=== PATIENT | male | born 1935 | race Caucasian/White ===

== ENCOUNTER 2020-09-28 10:25 | Inpatient (IN) | payer MEDICARE, BC ==
[~2020-09-28] VITALS: Ht 172.7 cm; Wt 75.3 kg
[2020-09-28] MEDS ORDERED: SERT50TA12 PO (10:41)
[2020-09-28] MEDS ORDERED: LOSA1TAB42 PO (10:41)
[2020-09-28] MEDS ORDERED: ATOR40TA PO (10:41)
[2020-09-28] MEDS ORDERED: EZET10TA32 PO (10:41)
[2020-09-28] MEDS ORDERED: ASPI-1169 PO (10:41)
[2020-09-28] MEDS ORDERED: APIX5TAB PO (10:41)
[2020-09-28] MEDS ORDERED: AMLO-213 PO (10:41)
[2020-09-28] MEDS ORDERED: RIVA1PAT11 TP (10:41)
[2020-09-28] MEDS ORDERED: LEVO75TA7 PO (10:41)
[2020-09-28] MEDS ORDERED: TRIA80CR12 TP (10:41)
--- NOTE | 2020-09-28 10:45 | NUR ---
Beth king in [facility] - 09/28/20 at 1142 by ANGÉLICA [id number] [facility] HOME C/O L HIP PAIN S/P GLF
--- NOTE | 2020-09-28 10:45 | NUR ---
[id number] [facility] HOME C/O L HIP PAIN S/P GLF
--- NOTE | 2020-09-28 10:45 | NUR ---
[id number] [facility] HOME C/O L HIP PAIN S/P GLF. ALERT ORIENTED X3. PAIN 2/10 PT ON ROOM AIR. DENIES SOB. RR REGULAR NON LABORED. WILL CONTINUE TO MONITOR.
[2020-09-28 10:55] LABS: BASOPHILS % (AUTO) 0.2 % (0.0-2.0); EOSINOPHILS % (AUTO) 0.9 % (0.0-6.0); HEMATOCRIT 37 % (39-51); LYMPHOCYTES % (AUTO) 13.5 % (20.0-44.0); MEAN CORPUSCULAR HGB CONC 33 g/dl (31.0-36.0); MEAN CORPUSCULAR VOLUME 92 fL (80-96); MONOCYTES # (AUTO) 0.6 K/uL (0.1-1.30); NEUTROPHILS # (AUTO) 11.9 K/uL (1.8-8.9); NEUTROPHILS % (AUTO) 81.4 % (43.0-81.0); PLATELET COUNT (AUTO) 232 K/uL (150-450); RED BLOOD CELL COUNT(AUTO) 3.95 MIL/uL (4.5-6.0); WHITE BLOOD COUNT (AUTO) 14.7 K/uL (4.3-11.0)
[2020-09-28 11:01] LABS: CALCIUM, SERUM 8.7 mg/dL (8.5-10.1); CARBON DIOXIDE 27 mmol/L (21-32); CHLORIDE 105 mmol/L (98-107); CREATININE 1.5 mg/dL (0.6-1.3); GLUCOSE 129 mg/dL (74-106); POTASSIUM 3.1 mmol/L (3.5-5.1); SODIUM SERUM 143 mmol/L (136-145); UREA NITROGEN, BLOOD 18 mg/dL (7-18)
--- NOTE | 2020-09-28 11:39 | NUR ---
COVID SWAB DONE AND SENT TO THE LAB
[2020-09-28] MEDS ORDERED: ONDANSETRON HCL/PF 4 MG/2 ML VIAL ONE (12:18)
--- NOTE | 2020-09-28 12:59 | NUR ---
NURSING SUP GAVE M/S BED 106.
--- NOTE | 2020-09-28 13:08 | NUR ---
REPORT GIVEN TO NURSE REBOLLEDO
[2020-09-28] MEDS ORDERED: ONDANSETRON HCL/PF 4 MG/2 ML VIAL IVP PRN (13:30)
[2020-09-28] MEDS ORDERED: MAG HYDROX/AL HYDROX/SIMETH 30 ML UDC PO PRN (13:30)
[2020-09-28] MEDS ORDERED: HYDROCODONE/APAP 5/325MG TABLET PO PRN (13:30)
[2020-09-28] MEDS ORDERED: Z GUARD REMEDY 2 OZ OINT TP PRN (13:30)
[2020-09-28] MEDS ORDERED: MAGNESIUM HYDROXIDE 30 ML UDC PO PRN (13:30)
[2020-09-28 13:45] VITALS: BP 129/57
--- NOTE | 2020-09-28 13:45 | NUR ---
THE PATIENT IS TRANSFERED TO ROOM 106 IN STABLE CONDITION AND PER ACLS POLICY.
--- NOTE | 2020-09-28 13:50 | NUR ---
RN NOTES RECEIVED PT FROM ER VIA [facility]. A/O X2-3. WITH PERIODS OF CONFUSION. STABLE ON ROOM AIR. SKIN IS INTACT. NO COMPLAINS OF PAIN. LAC #20 INTACT, PATENT AND FLUSHED. BELONGING LIST SIGNED. SAFETY MEASURES IN PLACE. ISOLATION PRECAUTIONS MAINTAINED. CALL LIGHT WITHIN REACH. BED LOCKED AND IN LOWEST POSITION WITH SIDE RAILS UP X3. WILL CONTINUE TO MONITOR.
[2020-09-28 16:00] VITALS: BP 125/61
--- NOTE | 2020-09-28 19:30 | NUR ---
RN NOTE RECEIVED PATIENT IN BED, CONFUSED, IN NO S/SX OF ACUTE DISTRESS AT THIS TIME. BREATHING EVEN AND UNLABORED, SATURATION AT 96% ON ROOM AIR, SR ON THE MONITOR, HR IS 69. NOTED IV SITE AT LAC 20G, PATENT AND FLUSHING WELL, NO S/S OF INFECTION OR INFILTRATION. PATIENT IS CONTINENT, WITH URINAL AT BEDSIDE. APPROPRIATE ISOLATION PRECAUTIONS MAINTAINED. SAFETY MEASURES IMPLEMENTED. PATIENT BED ALARM IS ON. HEAD OF BED ELEVATED. BED IS LOCKED, IN LOWEST POSITION AND SIDE RAILS UP. CALL LIGHT WITHIN REACH OF THE PATIENT. WILL CONTINUE TO MONITOR AND REASSESS FOR ANY CHANGES.
--- NOTE | 2020-09-28 19:37 | NUR ---
RN CLOSING NOTES NO SIGNIFICANT CHANGES THROUGHOUT THE SHIFT. STABLE ON ROOM AIR. NO PAIN REPORTED AT THIS TIME. KEPT CLEAN AND COMFORTABLE. NEEDS ATTENDED. ISOLATION PRECAUTIONS MAINTAINED. SAFETY MEASURES IN PLACE. ENDORSED TO NIGHT RN FOR QUE.
[2020-09-28 20:00] VITALS: BP 151/61
[2020-09-29] VITALS: BP 139/74
[2020-09-29] MEDS: ACETAMINOPHEN 325 MG TABLET PO PRN (00:54)
[2020-09-29 04:00] VITALS: BP 133/62
[2020-09-29 06:20] LABS: BASOPHILS % (AUTO) 0.1 % (0.0-2.0); EOSINOPHILS % (AUTO) 0.2 % (0.0-6.0); HEMATOCRIT 33 % (39-51); HEMOGLOBIN 10.9 g/dL (13.5-17.5); LYMPHOCYTES # (AUTO) 1.1 K/uL (0.8-4.8); LYMPHOCYTES % (AUTO) 7.7 % (20.0-44.0); MEAN CORPUSCULAR HGB CONC 34 g/dl (31.0-36.0); MEAN CORPUSCULAR VOLUME 92 fL (80-96); MONOCYTES % (AUTO) 7.4 % (2.0-12.0); NEUTROPHILS # (AUTO) 11.9 K/uL (1.8-8.9); NEUTROPHILS % (AUTO) 84.6 % (43.0-81.0); PLATELET COUNT (AUTO) 173 K/uL (150-450); RED BLOOD CELL COUNT(AUTO) 3.53 MIL/uL (4.5-6.0); WHITE BLOOD COUNT (AUTO) 14.1 K/uL (4.3-11.0)
[2020-09-29] MEDS ORDERED: TRIAMCINOLONE ACETONIDE 0.1% CR 15 GM TUBE TP PRN (07:00)
[2020-09-29 07:02] LABS: CHOLESTEROL 108 mg/dL (<200); HDL CHOLESTEROL 34 mg/dL (40-60); LDL 59 mg/dL (0-99); TRIGLYCERIDES 64 mg/dL (30-150)
[2020-09-29 07:09] LABS: ALANINE AMINOTRANSFERASE 32 U/L (12-78); ALKALINE PHOSPHATASE 34 U/L (46-116); ASPARTATE AMINOTRANSFERASE 51 U/L (15-37); BILIRUBIN,TOTAL 1.6 mg/dL (0.2-1.0); CALCIUM, SERUM 8.9 mg/dL (8.5-10.1); CARBON DIOXIDE 30 mmol/L (21-32); CHLORIDE 105 mmol/L (98-107); CREATININE 1.7 mg/dL (0.6-1.3); GLUCOSE 136 mg/dL (74-106); MAGNESIUM 1.8 mg/dL (1.8-2.4); PHOSPHORUS 3.3 mg/dL (2.5-4.9); POTASSIUM 3.4 mmol/L (3.5-5.1); SODIUM SERUM 143 mmol/L (136-145); TOTAL PROTEIN, SERUM 6.1 g/dL (6.4-8.2); UREA NITROGEN, BLOOD 38 mg/dL (7-18)
--- NOTE | 2020-09-29 07:21 | NUR ---
RN NOTE PATIENT OBSERVED IN BED ASLEEP AT THIS TIME, BREATHING EVEN AND UNLABORED,ON TELE MONITOR WITH CONTROLLED A-FIB AND OCCASIONAL PVC, PATIENT ON ROOM AIR O2 SAT OF 98%, NO COMPLAINS OF CHEST PAIN, BLE WEAKNESS, SAFETY MEASURES OBSERVED, CALL LIGHT WITHIN REACH, BED WHEELS LOCK, WILL CONTINUE TO MONITOR
--- NOTE | 2020-09-29 07:34 | NUR ---
RN NOTE PATIENT SEEN BY RONNIE ZULETA. PATIENT IS ON CONTROLLED A-FIB, NOTIFIED MD THAT PATIENT IS TAKING ELIQUIS AT HOME, BUT IS NOT CURRENTLY ON DUE TO HEMATOMA NOTED WITH THE PATIEN PER DR OLIVIA ORDERED TO FOLLOW UP IN TWO DAYS REGARDING ELIQUIS OR ANTICOAGULANT USE. WILL CONTINUE TO MONITOR PATIENT FOR S/S OF BLEEDING.
--- NOTE | 2020-09-29 07:34 | NUR ---
RN NOTE PATIENT ALERT AND ORIENTED X4 NOTED WITH CONTROLLED AFIB WITH OCCASIONAL PVC HR OF 72 NO COMPLAINS OF CHEST PAIN, NO NEW ORDERS AT THIS TIME.
[2020-09-29 08:00] VITALS: BP 132/62
[2020-09-29] MEDS: ATORVASTATIN 40 MG TABLET PO SCH (08:27)
[2020-09-29] MEDS: LEVOTHYROXINE SODIUM 75 MCG TABLET PO SCH (08:27)
[2020-09-29] MEDS: LOSARTAN POTASSIUM 50 MG TABLET PO SCH (08:27)
[2020-09-29] MEDS: SERTRALINE HCL 50 MG TABLET PO SCH (08:27)
[2020-09-29] MEDS: ASPIRIN 81 MG TAB.CHEW PO SCH (08:28)
[2020-09-29] MEDS: AMLODIPINE BESYLATE 10 MG TABLET PO SCH (08:28)
[2020-09-29] MEDS: EZETIMIBE 10 MG TABLET PO SCH (08:28)
[2020-09-29] MEDS ORDERED: POTASSIUM CHLORIDE 20 MEQ TAB.PRT.SR PO ONE (09:00)
[2020-09-29] MEDS ORDERED: HYDROCHLOROTHIAZIDE 25 MG TABLET PO SCH (09:00)
[2020-09-29] MEDS ORDERED: LOSARTAN/HCTZ 50-12.5MG/ 1 EA TABLET PO SCH (09:00)
[2020-09-29] MEDS: RIVASTIGMINE TARTRATE 4.6 MG PATCH.TD24 TD SCH (09:38)
--- NOTE | 2020-09-29 10:01 | NUR ---
RN NOTE DR. GONG UPDATED RESPONSIBLE REPUBLICAN REGARDING PATIENT CURRENT CONDITION AND PLAN.
--- NOTE | 2020-09-29 10:45 | NUR ---
RN NOTE PT/OT EVALUATION ORDERED BY [facility] PT/OT FOR PATIENT TO BE SEEN, OT SCHEDULED FOR TOMORROW, PT WILL SEE PATIENT TODAY.
[2020-09-29 12:00] VITALS: BP 131/54
[2020-09-29 16:00] VITALS: BP 122/58
[2020-09-29] MEDS: IV LR 1000 ML 1,000 ML IV PRN (18:42)
--- NOTE | 2020-09-29 18:50 | NUR ---
RN NOTE PATIENT OBSERVED IN BED ASLEEP AT THIS TIME, BREATHING EVEN AND UNLABORED,ON TELE MONITOR WITH CONTROLLED A-FIB AND OCCASIONAL PVC HR OF 76 AT THIS TIME, PATIENT ON ROOM AIR O2 SAT OF 98%, NO COMPLAINS OF CHEST PAIN, BLE WEAKNESS, NO BLEEDING NOTED, IV ON LEFT AC G20 MD STARTED LR 50CC/HR INFUSING WELL, FOR URINALYSIS, CREATINE URINE AND URINE SODIUM ORDERED, UNABLE TO COLLECT URINE AT THIS TIME MD ORDERED AT 1806,SAFETY MEASURES OBSERVED, CALL LIGHT WITHIN REACH, BED WHEELS LOCK, WILL CONTINUE TO MONITOR, WILL ENDORSE TO NOC SHIFT
--- NOTE | 2020-09-29 19:30 | NUR ---
RN NOTE RECEIVED PATIENT IN BED. A/OX1-2, PATIENT IS CONFUSED. TOLERATING ROOM AIR. RESPIRATIONS ARE EVEN AND UNLABORED. NO S/S SOB NOTED. NO C/O PAIN AT THIS TIME. IN NO APPARENT DISTRESS. EXTERNAL TELE MONITOR READ CONTROLLED AFIB HR 70-80 WITH OCCASIONAL PVCS. IV ACCESS IN LAC#20 RUNNING LR@50ML/HR. BED IS LOW AND LOCKED, HOB ELEVATED IN SEMI FOWLERS, SIDE RAILS UP X2, CALL LIGHT WITHIN REACH. WILL CONTINUE TO MONITOR THROUGHOUT SHIFT.
[2020-09-29 20:00] VITALS: BP 128/59
[2020-09-29 21:50] LABS: COLOR,URINE YELLOW (YELLOW)
[2020-09-29 21:51] LABS: PH,URINE 7.5 (5.0-8.0)
[2020-09-29 21:52] LABS: BILIRUBIN,URINE NEGATIVE (NEGATIVE); CREATININE, URINE 162.9 MG/DL (30.0-125.0); UGLUCOSE NEGATIVE (NEGATIVE); UROBILINOGEN,URINE 0.2 EU/dL (0.2)
[2020-09-29 22:10] LABS: PROTEIN,URINE NEGATIVE (NEGATIVE)
[2020-09-29 22:11] LABS: NITRITE, URINE NEGATIVE (NEGATIVE)
[2020-09-29 22:12] LABS: LEUKOCYTE ESTERASE ,URINE NEGATIVE (NEGATIVE)
[2020-09-29 22:13] LABS: BACTERIA,URINE RARE /HPF (None Seen); SQUAMOUS EPITHELIAL CELL,UR 0-2 /HPF (None Seen); WBC,URINE 0-2 /HPF (0-3)
[2020-09-29 22:14] LABS: URINE AMORPHOUS PHOSPHATES Many /HPF (None Seen)
[2020-09-30] VITALS: BP 121/52
[2020-09-30 04:00] VITALS: BP 134/65
--- NOTE | 2020-09-30 06:55 | NUR ---
RN NOTE PATIENT RESTING IN BED. A/OX1. REMAINS TOLERATING ROOM AIR. NO RESP DISTRESS. NO C/O PAIN. NO DISTRESS. TELE MONITOR CONTROLLED AFIB WITH PVCS. IV IN LAC#20 RUNNING LR@50ML/HR. BED REMAINS LOW AND LOCKED, HOB ELEVATED IN SEMI FOWLERS, SIDE RAILS UP X2, WILL ENDORSE TO ONCOMING SHIFT.
--- NOTE | 2020-09-30 07:15 | NUR ---
RN NOTE PATIENT OBSERVED IN BED ASLEEP AT THIS TIME, BREATHING EVEN AND UNLABORED,ON TELE MONITOR WITH CONTROLLED A-FIB AND OCCASIONAL PVC, PATIENT ON ROOM AIR O2 SAT OF 98%, NO COMPLAINS OF CHEST PAIN, BLE WEAKNESS, FOR PT/OT SERVICES TODAY, WILL FOLLOW UP ORDERED, SAFETY MEASURES OBSERVED, CALL LIGHT WITHIN REACH, BED WHEELS LOCK, WILL CONTINUE TO MONITOR
[2020-09-30 08:00] VITALS: BP 111/63
[2020-09-30] MEDS: ASPIRIN 81 MG TAB.CHEW PO SCH (09:00)
[2020-09-30] MEDS: ATORVASTATIN 40 MG TABLET PO SCH (09:07)
[2020-09-30] MEDS: LOSARTAN POTASSIUM 50 MG TABLET PO SCH (09:08)
[2020-09-30] MEDS: AMLODIPINE BESYLATE 10 MG TABLET PO SCH (09:09)
[2020-09-30] MEDS: LEVOTHYROXINE SODIUM 75 MCG TABLET PO SCH (09:09)
[2020-09-30] MEDS: SERTRALINE HCL 50 MG TABLET PO SCH (09:09)
[2020-09-30] MEDS: EZETIMIBE 10 MG TABLET PO SCH (09:09)
[2020-09-30] MEDS: RIVASTIGMINE TARTRATE 4.6 MG PATCH.TD24 TD SCH (09:12)
[2020-09-30] MEDS: POTASSIUM CHLORIDE 20 MEQ TAB.PRT.SR PO SCH ×3 (10:05→13:07)
[2020-09-30 12:00] VITALS: BP 109/59
[2020-09-30] MEDS: IV LR 1000 ML 1,000 ML IV PRN (15:21)
[2020-09-30 16:00] VITALS: BP 114/60
--- NOTE | 2020-09-30 18:52 | NUR ---
RN NOTE PATIENT OBSERVED IN BED AWAKE WITH EPISODE OF CONFUSION AT THIS TIME, BREATHING EVEN AND UNLABORED,ON TELE MONITOR WITH CONTROLLED A-FIB AND OCCASIONAL PVC, PATIENT ON ROOM AIR O2 SAT OF 98%, NO COMPLAINS OF CHEST PAIN, BLE WEAKNESS, PATIENT WITH RIGHT UPPER ARM IV, PATENT AND INFUSING WELL, SEEN BY PT AND OT TODAY, WILL FOLLOW UP ORDERED, SAFETY MEASURES OBSERVED, CALL LIGHT WITHIN REACH, BED WHEELS LOCK, WILL CONTINUE TO MONITOR, WILL ENDORSE TO NOC SHIFT
[2020-09-30 20:00] VITALS: BP 98/54
[2020-09-30] MEDS: ACETAMINOPHEN 325 MG TABLET PO PRN (21:08)
--- NOTE | 2020-09-30 22:10 | NUR ---
COMMUNICATIONS PROFESSOR: REASSESSED AFTER GIVEN TYLENOL WT GOOD EFFECT. NO C/O BODY PAIN AT THIS TIME. EYES CLOSED, ABLE TO OPEN EYES WHEN TOUCHED OR CALLED BY NAME. WILL CONTINUE TO MONITOR.
[2020-10-01] VITALS: BP 109/54
[2020-10-01 04:00] VITALS: BP 116/56
--- NOTE | 2020-10-01 06:15 | NUR ---
ALARM MECHANIC: NO SIGNIFICANT QUE DURING THE SHIFT. ALERT AND AWAKE WT CONFUSION AND FORGETFULNESS. WT EPISODES OF TRYING TO GET OUT BED THINKING PT WAS AT HOME AND CALLING THE . REORIENTED TO [facility] WT HELP. SR WT PACs ON TELE. CONTINUE ON LR AT 50ML/HR WT NO S/S OF IV INFILTRATION. HOB AT 35 DEGREES, BED IN LOWEST POSITION AND LOCKED, SIDE RAILS UP X3. BED ALARM ON. CALL LIGHT KEPT WITHIN REACH.
--- NOTE | 2020-10-01 07:30 | NUR ---
RN OPENING NOTE RECEIVED REPORT FROM PM NURSE.PATIENT IN BED ,AWAKE WITH CONFUSION AT THIS TIME, BREATHING EVEN AND UNLABORED,ON TELE MONITOR WITH CONTROLLED A-FIB AND OCCASIONAL PVC, PATIENT ON ROOM AIR NO COMPLAINS OF CHEST PAIN, BLE WEAKNESS.IV IS INTACT , PATENT AND INFUSING WELL.SAFETY MEASURES IN PLACE.CALL LIGHT WITHIN REACH,BED IS LOW AND IN LOCKED POSITION.SRX3.WILL CONTINUE TO MONITOR.
[2020-10-01 08:00] VITALS: BP 104/54
[2020-10-01] MEDS: ATORVASTATIN 40 MG TABLET PO SCH (08:11)
[2020-10-01] MEDS: ASPIRIN 81 MG TAB.CHEW PO SCH (08:12)
[2020-10-01] MEDS: EZETIMIBE 10 MG TABLET PO SCH (08:12)
[2020-10-01] MEDS: SERTRALINE HCL 50 MG TABLET PO SCH (08:12)
[2020-10-01] MEDS: AMLODIPINE BESYLATE 10 MG TABLET PO SCH (08:12)
[2020-10-01] MEDS: LOSARTAN POTASSIUM 50 MG TABLET PO SCH (08:13)
[2020-10-01] MEDS: RIVASTIGMINE TARTRATE 4.6 MG PATCH.TD24 TD SCH (08:13)
[2020-10-01] MEDS: LEVOTHYROXINE SODIUM 75 MCG TABLET PO SCH (08:13)
[2020-10-01 09:49] LABS: BASOPHILS % (AUTO) 0.1 % (0.0-2.0); EOSINOPHILS % (AUTO) 0.6 % (0.0-6.0); HEMATOCRIT 26 % (39-51); HEMOGLOBIN 8.9 g/dL (13.5-17.5); LYMPHOCYTES # (AUTO) 1.3 K/uL (0.8-4.8); LYMPHOCYTES % (AUTO) 10.4 % (20.0-44.0); MEAN CORPUSCULAR HGB CONC 34 g/dl (31.0-36.0); MEAN CORPUSCULAR VOLUME 92 fL (80-96); MONOCYTES # (AUTO) 0.8 K/uL (0.1-1.30); MONOCYTES % (AUTO) 6.4 % (2.0-12.0); NEUTROPHILS % (AUTO) 82.5 % (43.0-81.0); PLATELET COUNT (AUTO) 168 K/uL (150-450); RED BLOOD CELL COUNT(AUTO) 2.85 MIL/uL (4.5-6.0); WHITE BLOOD COUNT (AUTO) 12.2 K/uL (4.3-11.0)
[2020-10-01 10:18] LABS: CALCIUM, SERUM 8.5 mg/dL (8.5-10.1); CARBON DIOXIDE 27 mmol/L (21-32); CHLORIDE 107 mmol/L (98-107); CREATININE 1.4 mg/dL (0.6-1.3); GLUCOSE 115 mg/dL (74-106); POTASSIUM 3.2 mmol/L (3.5-5.1); SODIUM SERUM 141 mmol/L (136-145); UREA NITROGEN, BLOOD 49 mg/dL (7-18)
[2020-10-01 12:00] VITALS: BP 122/57
--- NOTE | 2020-10-01 12:13 | NUR ---
RN NOTE ABNORMAL LABS NOTIFIED TO ,GOT NEW ORDER FOR POTASSIUM [id number] PO.
[2020-10-01] MEDS ORDERED: POTASSIUM CHLORIDE 20 MEQ TAB.PRT.SR PO ONE (12:30)
[2020-10-01] MEDS: IV LR 1000 ML 1,000 ML IV PRN (12:45)
[2020-10-01 16:00] VITALS: BP 115/57
[2020-10-01] MEDS: ACETAMINOPHEN 325 MG TABLET PO PRN (16:42)
--- NOTE | 2020-10-01 17:20 | NUR ---
RN NOTE PATOENT GETTING UP FROM BED .NON COMPLIANT WITH INSTRUCTIONS.PULLING IV LINE AND IV PUMP. MADE AWARE.GOT AN ORDER FOR SITTER.CHARGE NURSE MADE AWARE.
--- NOTE | 2020-10-01 18:53 | NUR ---
RMN CLOSING NOTE PATIENT IN BED.TO HAVE SITTER.PATIENT IS GETTING UP FROM BED.RN SITTING NEST TO PATIENT TO ENSURE SAFETY.V/S STABLE.ALL NEEDS MET.SAFETY AND ASPIRATION MEASURES IN PLACE.WILL ENDORSE TO PM NURSE FOR QUE.
--- NOTE | 2020-10-01 19:47 | NUR ---
RN OPENING NOTE RECEIVED PATIENT IN BED , AWAKE WITH CONFUSION , A/O X1. BREATHING EVEN AND UNLABORED, NO SOB NOTED ON ROOM AIR. DENIES ANY PAIN. CRICKET FLORES AT BEDSIDE SITTER R/T PT. CONFUSED AND DISORIENTED .IV (L) WRIST INTACT , PATENT AND INFUSING LR @ 50ML/HR. SAFETY MEASURES IN PLACE. CALL LIGHT WITHIN REACH, BED LOCKED AND IN LOWEST POSITION. SRX3. VITAL SIGNS WNL. NO ACUTE DISTRESS NOTED AT THIS TIME.
[2020-10-01 20:00] VITALS: BP 119/80
[2020-10-02 04:00] VITALS: BP 121/71
--- NOTE | 2020-10-02 06:58 | NUR ---
RN CLOSING NOTE PATIENT IN BED , AWAKE WITH CONFUSION , A/O X1. BREATHING EVEN AND UNLABORED, NO SOB NOTED ON ROOM AIR. DENIES ANY PAIN. CRICKET FLORES AT BEDSIDE SITTER R/T PT. CONFUSED AND DISORIENTED .IV (L) WRIST INTACT , PATENT AND INFUSING LR @ 50ML/HR. ALL NEEDS ATTENDED THROUGHOUT SHIFT. KEPT CLEAN AND DRY. SAFETY MEASURES IN PLACE. CALL LIGHT WITHIN REACH, BED LOCKED AND IN LOWEST POSITION. SRX3. VITAL SIGNS WNL. NO ACUTE DISTRESS NOTED AT THIS TIME. WILL ENDORSE CONTINUITY OF CARE TO MORNING SHIFT RN
--- NOTE | 2020-10-02 07:32 | NUR ---
RN OPENING NOTE Patient is alert and oriented x 1-2 (Name/location) with periods of confusion as baseline and agitation. with CANDY CUTTER MACHINE at bedside for safety checks. No respiratory distress. Left wrist IV #22 patent, clean-intact, no s/sx of infiltration, infusing LR @50ml/hr. Safety measures in place, bed locked in lowest position with side rails up x 3 and call light within reach.
[2020-10-02 08:00] VITALS: BP 130/75
[2020-10-02 08:13] LABS: BASOPHILS % (AUTO) 0.2 % (0.0-2.0); EOSINOPHILS % (AUTO) 0.8 % (0.0-6.0); HEMATOCRIT 23 % (39-51); HEMOGLOBIN 7.9 g/dL (13.5-17.5); LYMPHOCYTES % (AUTO) 10.9 % (20.0-44.0); MEAN CORPUSCULAR HGB CONC 34 g/dl (31.0-36.0); MEAN CORPUSCULAR VOLUME 92 fL (80-96); MONOCYTES # (AUTO) 0.9 K/uL (0.1-1.30); MONOCYTES % (AUTO) 9.8 % (2.0-12.0); NEUTROPHILS # (AUTO) 7.3 K/uL (1.8-8.9); NEUTROPHILS % (AUTO) 78.3 % (43.0-81.0); PLATELET COUNT (AUTO) 179 K/uL (150-450); RED BLOOD CELL COUNT(AUTO) 2.53 MIL/uL (4.5-6.0); WHITE BLOOD COUNT (AUTO) 9.3 K/uL (4.3-11.0)
[2020-10-02] MEDS: LEVOTHYROXINE SODIUM 75 MCG TABLET PO SCH (08:32)
[2020-10-02] MEDS: ASPIRIN 81 MG TAB.CHEW PO SCH (08:32)
[2020-10-02] MEDS: LOSARTAN POTASSIUM 50 MG TABLET PO SCH (08:33)
[2020-10-02] MEDS: ATORVASTATIN 40 MG TABLET PO SCH (08:34)
[2020-10-02] MEDS: AMLODIPINE BESYLATE 10 MG TABLET PO SCH (08:35)
[2020-10-02] MEDS: EZETIMIBE 10 MG TABLET PO SCH (08:35)
[2020-10-02] MEDS: RIVASTIGMINE TARTRATE 4.6 MG PATCH.TD24 TD SCH (08:36)
[2020-10-02] MEDS: SERTRALINE HCL 50 MG TABLET PO SCH (08:36)
[2020-10-02] MEDS ORDERED: POTASSIUM CHLORIDE 20 MEQ TAB.PRT.SR PO ONE (09:30)
[2020-10-02 10:11] LABS: ALBUMIN 2.4 g/dL (3.4-5.0); BILIRUBIN,TOTAL 1.4 mg/dL (0.2-1.0); CALCIUM, SERUM 8.3 mg/dL (8.5-10.1); CREATININE 1.1 mg/dL (0.6-1.3); MAGNESIUM 1.9 mg/dL (1.8-2.4); POTASSIUM 3.5 mmol/L (3.5-5.1)
[2020-10-02 12:20] VITALS: BP 144/95
[2020-10-02] MEDS ORDERED: K PHOS NEUTRAL 250 MG TABLET PO ONE (15:30)
[2020-10-02 16:00] VITALS: BP 135/99
--- NOTE | 2020-10-02 16:00 | NUR ---
CT Scan pelvis done.
--- NOTE | 2020-10-02 19:01 | NUR ---
RN CLOSING NOTES Patient is alert and oriented x 1-2 with periods of agitation and confusion as baseline. No respiratory distress, on room air. 1:1 sitter at bedside due to multiple attempts of getting out of bed unassisted states he needs to go back home. came to visit requesting for D/C to [facility], waiting for placement by CM. Patient had CT pelvis today. Safety check done bed locked in lowest position, call light within reach.
--- NOTE | 2020-10-02 19:35 | NUR ---
RN OPENING NOTES PT RECEIVED IN BED. A&OX1-2. PT HAS SITTER. CURRENTLY ON ROOM AIR SHOWING NO S/S OF RESPIRATORY DISTRESS/SOB. PT HAS IV LINE ON LEFT WRIST 22G INFUSING LR AT 50 ML/HR. IV LINE FLUSHED, PATENT, AND INTACT WITH NO SIGNS OF INFILTRATION. ALL SAFETY MEASURES IMPLEMENTED. BED ALARM ON. CALL LIGHT WITHIN REACH. BED LOCKED AND IN LOWEST POSITION. WILL CONTINUE TO MONITOR THROUGHOUT THE SHIFT.
[2020-10-02] MEDS: IV LR 1000 ML 1,000 ML IV PRN (19:44)
[2020-10-02 20:00] VITALS: BP 125/78
[2020-10-03 04:00] VITALS: BP 141/59
[2020-10-03 06:20] LABS: BASOPHILS # (AUTO) 0.1 K/uL (0.0-0.2); BASOPHILS % (AUTO) 0.5 % (0.0-2.0); EOSINOPHILS % (AUTO) 2.6 % (0.0-6.0); HEMATOCRIT 23 % (39-51); HEMOGLOBIN 7.7 g/dL (13.5-17.5); LYMPHOCYTES # (AUTO) 1.7 K/uL (0.8-4.8); LYMPHOCYTES % (AUTO) 14.8 % (20.0-44.0); MEAN CORPUSCULAR HGB CONC 34 g/dl (31.0-36.0); MEAN CORPUSCULAR VOLUME 92 fL (80-96); MONOCYTES # (AUTO) 1.4 K/uL (0.1-1.30); MONOCYTES % (AUTO) 11.9 % (2.0-12.0); NEUTROPHILS % (AUTO) 70.2 % (43.0-81.0); PLATELET COUNT (AUTO) 202 K/uL (150-450); RED BLOOD CELL COUNT(AUTO) 2.46 MIL/uL (4.5-6.0); WHITE BLOOD COUNT (AUTO) 11.5 K/uL (4.3-11.0)
--- NOTE | 2020-10-03 06:42 | NUR ---
RN CLOSING NOTES NO CHANGES IN PT CONDITION THROUGHOUT THE SHIFT. PT IS ON ROOM AIR WITH NO S/S OF RESP DISTRESS/SOB. PT IS A&OX1. PT HAS IV LINE ON LEFT WRIST 22 GAUGE INFUSING LR AT 50ML/HR. IV FLUSHED, PATENT, AND INTACT. PT KEPT CLEAN AND COMFORTABLE THROUGHOUT SHIFT. ALL DUE MEDS GIVEN ORDERED. ALL SAFETY MEASURES IMPLEMENTED. BED LOCKED AND IN LOWEST POSITION. BED ALARM ON. CALL LIGHT WITHIN REACH. WILL ENDORSE TO MORNING SHIFT RN FOR QUE.
[2020-10-03 07:10] LABS: CALCIUM, SERUM 8.2 mg/dL (8.5-10.1); CREATININE 1.1 mg/dL (0.6-1.3); PHOSPHORUS 2.3 mg/dL (2.5-4.9); POTASSIUM 3.5 mmol/L (3.5-5.1)
[2020-10-03] MEDS: LEVOTHYROXINE SODIUM 75 MCG TABLET PO SCH (07:55)
[2020-10-03 08:00] VITALS: BP 130/66
[2020-10-03] MEDS: SERTRALINE HCL 50 MG TABLET PO SCH (09:03)
[2020-10-03] MEDS: ASPIRIN 81 MG TAB.CHEW PO SCH (09:04)
[2020-10-03] MEDS: EZETIMIBE 10 MG TABLET PO SCH (09:04)
[2020-10-03] MEDS: ATORVASTATIN 40 MG TABLET PO SCH (09:04)
[2020-10-03] MEDS: LOSARTAN POTASSIUM 50 MG TABLET PO SCH (09:04)
[2020-10-03] MEDS: AMLODIPINE BESYLATE 10 MG TABLET PO SCH (09:05)
[2020-10-03] MEDS: RIVASTIGMINE TARTRATE 4.6 MG PATCH.TD24 TD SCH (09:05)
[2020-10-03] MEDS ORDERED: K PHOS NEUTRAL 250 MG TABLET PO ONE (09:30)
--- NOTE | 2020-10-03 15:35 | NUR ---
Handoff with Ivett, Charge Nurse, [facility]. Gabriel Arce RN
[2020-10-03 16:00] VITALS: BP 122/58
--- NOTE | 2020-10-03 18:40 | NUR ---
Patient accompanied by spouse left with ambulance company and all belongings. He is a discharge pending further acute rehabilitation with the [facility]. Gabriel Arce RN
== END 2020-10-03 18:45 | DRG 535 ==
LOC: ER 10:32 → MEDSG1 13:07 → TELE1 13:51 → MEDSG1 10-01 07:57
PROVIDERS: ADMIT Internal Medicine; ATTEND Internal Medicine
DX: S32.82XA Multiple fractures of pelvis without disruption of pelvic ring, initial encounter for closed fracture (principal); U07.1 COVID-19; N17.0 Acute kidney failure with tubular necrosis; I48.91 Unspecified atrial fibrillation; F03.90 Unspecified dementia, unspecified severity, without behavioral disturbance, psychotic disturbance, mood disturbance, and anxiety; I10 Essential (primary) hypertension; M19.90 Unspecified osteoarthritis, unspecified site; E78.5 Hyperlipidemia, unspecified; D72.829 Elevated white blood cell count, unspecified; W17.81XA Fall down embankment (hill), initial encounter; Y92.414 Local residential or business street as the place of occurrence of the external cause; Z79.01 Long term (current) use of anticoagulants; Z79.899 Other long term (current) drug therapy; Z91.81 History of falling; N40.0 Benign prostatic hyperplasia without lower urinary tract symptoms; Z79.82 Long term (current) use of aspirin; E87.6 Hypokalemia; M48.061 Spinal stenosis, lumbar region without neurogenic claudication; M47.816 Spondylosis without myelopathy or radiculopathy, lumbar region; M16.0 Bilateral primary osteoarthritis of hip; M11.252 Other chondrocalcinosis, left hip; M11.251 Other chondrocalcinosis, right hip; M85.80 Other specified disorders of bone density and structure, unspecified site; K57.30 Diverticulosis of large intestine without perforation or abscess without bleeding; S39.093A Other injury of muscle, fascia and tendon of pelvis, initial encounter
CPT/HCPCS: 36415; 71045-TC; 72192-TC; 73502; 80048-TC; 80053-TC; 80061-TC; 81001; 82570-TC; 83735-TC; 84100-TC; 84300-TC; 84484-TC; 85025-TC; 85378-TC; 86140-TC; 87081-TC; 93307-TC; 97110-TC; 97112-TC; 97530-TC; C9803; G0378; J2405; J7030; J7120; U0003